=== PATIENT | female | born 1980 | race Caucasian/White ===

== ENCOUNTER 2017-03-20 17:49 | Emergency (ER) | payer OTHER ==
[2017-03-20 18:02] VITALS: BP 127/68
[2017-03-20] MEDS ORDERED: Lidocaine 2% VISCOUS* 15 ML UDC PO ONE (18:27)
--- NOTE | 2017-03-20 18:37 | UC ---
Cindy Moctezuma Emily, scribed for Ashley Champion MD on 03/20/17 at 1823 . Dental HPI - HPI Summary HPI Summary: This patient is a 37 year old F presenting to urgent care with a chief complaint of right upper tooth pain that began 1 week ago. Pain worsened today. The patient rates the pain 10/10 in severity. Symptoms aggravated by movement of her jaw, cold, eating. Symptoms alleviated by nothing. Pt has been taking Motrin with little relief. No drooling. + eating soft foods. Pt reports having previous similar tooth infections. Pt has an appt with dentist on Monday. Patient's medication reviewed this visit. - History of Current Complaint Chief Complaint: UCDentalProblem Stated Complaint: DENTAL Time Seen by Provider: 03/20/17 18:03 Hx Obtained From: Patient Hx Last Menstrual Period: now Onset/Duration: Sudden Onset Severity: Severe Pain Intensity: 10 Pain Scale Used: 0-10 Numeric Aggravating Factor(s): Chewing Alleviating Factor(s): Nothing - Allergies/Home Medications Allergies/Adverse Reactions: Allergies Allergy/AdvReac Type Severity Reaction Status Date / Time Erythromycin [From Pediazole] Allergy Intermediate Hives Verified 03/20/17 17:58 Penicillins Allergy Intermediate Nausea And Verified 03/20/17 17:58 Vomiting Sulfisoxazole Allergy Intermediate Hives Verified 03/20/17 17:58 [From Pediazole] Azithromycin Allergy Diarrhea Verified 03/20/17 17:58 Ciprofloxacin [From Cipro] Allergy See Comment Verified 03/20/17 17:58 PMH/Surg Hx/FS Hx/Imm Hx - Additional Past Medical History Additional PMH: Hx of tooth infections Previously Healthy: No Other GI/ History: Overactive bladder Other History Of: Negative For: HIV, Hepatitis B, Hepatitis C - Surgical History Surgical History: Yes Surgery Procedure, Year, and Place: TUBES IN EARS CHILD - Family History Known Family History: Positive: Hypertension Family History: Leukemia - Social History Occupation: Unemployed Lives: With Family Alcohol Use: None Substance Use Type: None Smoking Status (MU): Current Every Day Smoker Type: Cigarettes Amount Used/How Often: 1/2 ppD Length of Time of Smoking/Using Tobacco: 15+ years Have You Smoked in the Last Year: Yes Household Exposure Type: Cigarettes Review of Systems Constitutional: Fever ENT: Dental Pain, Other - Positive difficulty chewing All Other Systems Reviewed And Are Negative: Yes Physical Exam Triage Information Reviewed: Yes Appearance: Well-Appearing, No Pain Distress, Well-Nourished Vital Signs: Initial Vital Signs Temp 98.0 F 03/20/17 17:59 Pulse 83 03/20/17 17:59 Resp 18 03/20/17 17:59 BP 127/68 03/20/17 17:59 Pulse Ox 100 03/20/17 17:59 Vital Signs Reviewed: Yes Eyes: Positive: Conjunctiva Clear ENT Exam: Normal ENT: Positive: Normal ENT inspection, Hearing grossly normal, Pharynx normal, TMs normal Dental: Positive: Other: - #1 tooth - inflammed, tender, mild erythema at buccal gumline. no exudate. no fluctuance Neck exam: Normal Neck: Positive: Supple, Nontender, No Lymphadenopathy Respiratory Exam: Normal Respiratory: Positive: Chest non-tender, Lungs clear, Normal breath sounds, No respiratory distress Cardiovascular Exam: Normal Cardiovascular: Positive: RRR, No Murmur, Pulses Normal Musculoskeletal Exam: Normal Neurological Exam: Normal Neurological: Positive: Alert Psychological Exam: Normal Skin Exam: Normal Re-Evaluation - Re-Evaluation First Eval Re-Evaluation Time: 18:54 Change: Improved Comment: pt states feels better after lidocaine. will give Rx. pt also gets yeast infections with abx - will give diflucan Dental Complaint Course/Dx - Course Course Of Treatment: pt with discomfort #1 tooth. on exam appears impacted wisdom tooth with erythema and tenderness. will trial lidocaime. reviewed with analgesia. clinda. dental list given. pt with appt Monday with her dentist - Differential Dx/Diagnosis Provider Diagnoses: impacted tooth. dental pain Discharge - Discharge Plan Condition: Stable Disposition: HOME Prescriptions: Clindamycin Cap(NF) [Clindamycin Cap 300 mg Cap(NF)] 300 mg PO TID #30 cap Additional Instructions: - stay well hydrated. drink plenty of non-alcoholic, non-caffinated beverages - take antibiotics as prescirbed. they will likely cause diarrhea. okay to take immodium as needed. Eating yogurt or taking pro-biotics may help with diarrhea - keep your dental appointment as scheduled on Monday - - Alternate ibuprofen (Advil, Motrin) 600mg and Tylenol every 3 hours for pain or fever. Take with food. Do NOT take for more than 4-5 days - okay to apply lidocaine- numbing medication as instructed - call your doctor or return with questions or concerns The documentation as recorded by the Cindy blank Emily accurately reflects the service I personally performed and the decisions made by me, Ashley Champion MD.
== END 2017-03-20 19:05 | disposition home or self-care (01) ==
LOC: UCEAST 17:49
DX: K01.1 Impacted teeth (principal); F17.210 Nicotine dependence, cigarettes, uncomplicated
CPT/HCPCS: 99212; G0463

== ENCOUNTER 2017-12-23 11:56 | Emergency (ER) | payer OTHER ==
[2017-12-23 12:03] VITALS: BP 141/85
--- NOTE | 2017-12-23 12:48 | UC ---
Upper Extremity HPI - HPI Summary HPI Summary: Rosa Moctezuma, scribed for Jesusita Toledo MD. Pt is a 37 y/o F who presents to [facility] c/o L shoulder pain for about 1 month. Pain is located diffusely throughout the shoulder and she had no trauma at onset. On triage, pain is severe ranked 9/10 and aggravated by movement. She has tried many OTC medications including Ibuprofen and Motrin which have not improved symptoms, as well as stretching at home. 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 She saw her PCP and reports she saw told her pain was due to "every day wear and tear" per pt. - History of Current Complaint Chief Complaint: UCUpperExtremity Stated Complaint: SHOULDER PAIN Time Seen by Provider: 12/23/17 12:41 Hx Obtained From: Patient Hx Last Menstrual Period: 11/07/17 Onset/Duration: Lasting Weeks - 1 month, Still Present Severity Currently: Severe Pain Intensity: 9 Pain Scale Used: 0-10 Numeric Location Of Pain: Is Discrete @ - Diffusely throughout L shoulder Aggravating Factor(s): Movement Alleviating Factor(s): Nothing Associated Signs And Symptoms: Positive: Negative - Allergies/Home Medications Allergies/Adverse Reactions: Allergies Allergy/AdvReac Type Severity Reaction Status Date / Time ciprofloxacin [From Cipro] Allergy throat Verified 12/23/17 12:06 swelling erythromycin base Allergy sulfa Verified 12/23/17 12:05 Penicillins Allergy n/v Verified 12/23/17 12:05 Sulfa (Sulfonamide Allergy Hives Verified 12/23/17 12:05 Antibiotics) Home Medications: Home Medications Aspirin 81 mg CHEW TAB* 81 mg PO DAILY 12/23/17 [History Confirmed 12/23/17] PMH/Surg Hx/FS Hx/Imm Hx Endocrine History: Dyslipidemia - HLD Psychological History: Other Other Psychological History: ADD Other History Of: Negative For: HIV, Hepatitis B, Hepatitis C - Surgical History Surgical History: Yes Surgery Procedure, Year, and Place: TUBES IN EARS CHILD - Family History Known Family History: Positive: Hypertension Family History: Leukemia - Social History Alcohol Use: None Substance Use Type: None Smoking Status (MU): Current Every Day Smoker Type: Cigarettes Amount Used/How Often: 1/2 ppD Length of Time of Smoking/Using Tobacco: 15+ years Have You Smoked in the Last Year: Yes Household Exposure Type: Cigarettes Review of Systems Constitutional: Negative Skin: Negative Eyes: Negative ENT: Negative Respiratory: Negative Cardiovascular: Negative Gastrointestinal: Negative Genitourinary: Negative Motor: Negative Neurovascular: Negative Musculoskeletal: Arthralgia - L shoulder pain Neurological: Negative Psychological: Negative All Other Systems Reviewed And Are Negative: Yes Physical Exam - Summary Physical Exam Summary: Appearance: Well-appearing, Well-nourished Skin: Warm Eyes: Normal ENT: Normal Neck: Supple, nontender Respiratory: Clear to auscultation Cardiovascular: Regular rate, regular rhythm. Normal S1, S2. Musculoskeletal: Tenderness to palpation over the L trapezius, inside the L rotator cuff, inside the L AC joint, and diffusely around the rotator cuff muscles Neurological: Normal, A&Ox3 Psychiatric: Normal General: No acute distress Triage Information Reviewed: Yes Vital Signs: Initial Vital Signs Temp 98 F 12/23/17 11:59 Pulse 82 12/23/17 11:59 Resp 18 12/23/17 11:59 BP 141/85 12/23/17 11:59 Pulse Ox 100 12/23/17 11:59 Vital Signs Reviewed: Yes Diagnostics - Radiology Shoulder XR Xray Interpretation: No Acute Changes - #. Variant os acromiale. #. Negative for fracture, malalignment, or significant arthropathic change. Physician reviewed this report. Radiology Interpretation Completed By: Radiologist Upper Extremity Course/Dx - Course Course Of Treatment: XR neg for fx, it may be a rotator tendinopathy vs arthritis, advised PT and MRI - Differential Dx/Diagnosis Provider Diagnoses: Left shoulder pain Discharge - Sign-Out/Discharge Documenting (check all that apply): Patient Departure - Discharge Plan Condition: Stable Disposition: HOME Prescriptions: oxyCODONE/Acetamin 5/325 MG* [Percocet 5/325 TAB*] 1 tab PO Q8H PRN 3 Days #12 tab MDD 3 PRN Reason: Pain Patient Education Materials: Shoulder Sprain (ED), Shoulder Pain (ED) Referrals: Darien Lewis [Primary Care Provider] - Additional Instructions: please follow up with PCP for PT referral and MRI
--- NOTE | 2017-12-23 13:16 | RAD ---
Indication: 1 month LEFT shoulder pain. Progression of symptoms. No preceding injury. Comparison: February 19, 2014 Technique: Internal rotation AP, external rotation Grashey, scapular Y, axillary views LEFT shoulder Report: Variant persistent os acromiale. Negative for fracture. Normal acromioclavicular and glenohumeral joint alignment. No significant arthropathic change evident. Negative for calcific tendinopathy or abnormal soft tissue contour. IMPRESSION: #. Variant os acromiale. #. Negative for fracture, malalignment, or significant arthropathic change.
== END 2017-12-23 13:26 | disposition home or self-care (01) ==
LOC: UCEAST 11:56
DX: M25.512 Pain in left shoulder (principal); F17.210 Nicotine dependence, cigarettes, uncomplicated; Z88.1 Allergy status to other antibiotic agents; Z88.2 Allergy status to sulfonamides; Z79.82 Long term (current) use of aspirin; Z88.0 Allergy status to penicillin
CPT/HCPCS: 99212; G0463

== ENCOUNTER 2018-02-26 15:54 | Emergency (ER) | payer OTHER ==
[2018-02-26 16:14] VITALS: BP 130/88
--- NOTE | 2018-02-26 16:26 | UC ---
Dental HPI - HPI Summary HPI Summary: 37 yo female presents with tooth pain. She tells me that 3 days ago she was eating a hard candy "fireball" and bit into it - fractured her left lower tooth. Since this time has had significant pain. She made an appointment with a dentist, but cannot see them for 1 week. She is able to eat and drink, but does have pain. Denies fever or chills. - History of Current Complaint Chief Complaint: UCDentalProblem Stated Complaint: TOOTH ACHE Time Seen by Provider: 02/26/18 16:24 Hx Obtained From: Patient Hx Last Menstrual Period: [id number] Onset/Duration: Sudden Onset Severity: Severe Pain Intensity: 9 Pain Scale Used: 0-10 Numeric - Allergies/Home Medications Allergies/Adverse Reactions: Allergies Allergy/AdvReac Type Severity Reaction Status Date / Time ciprofloxacin [From Cipro] Allergy throat Verified 02/26/18 16:15 swelling erythromycin base Allergy Unknown Verified 02/26/18 16:15 Reaction Details Penicillins Allergy Nausea And Verified 02/26/18 16:15 Vomiting Sulfa (Sulfonamide Allergy Hives Verified 02/26/18 16:15 Antibiotics) PMH/Surg Hx/FS Hx/Imm Hx Endocrine History: Dyslipidemia Other History Of: Negative For: HIV, Hepatitis B, Hepatitis C - Surgical History Surgical History: Yes Surgery Procedure, Year, and Place: TUBES IN EARS CHILD - Family History Known Family History: Positive: Hypertension Family History: Leukemia - Social History Occupation: Unemployed Lives: With Family Alcohol Use: None Substance Use Type: None Smoking Status (MU): Heavy Every Day Tobacco Smoker Type: Cigarettes Amount Used/How Often: 1/2 ppD Length of Time of Smoking/Using Tobacco: 15+ years Have You Smoked in the Last Year: Yes Household Exposure Type: Cigarettes Review of Systems Constitutional: Negative Skin: Negative Eyes: Negative ENT: Dental Pain Respiratory: Negative Cardiovascular: Negative Gastrointestinal: Negative Neurovascular: Negative Neurological: Negative Psychological: Negative All Other Systems Reviewed And Are Negative: Yes Physical Exam - Summary Physical Exam Summary: GENERAL: WDWN. Holding left lower jaw in mild pain. SKIN: No erythema, edema, or abscess to left lower jawline. NECK: Supple. Nontender. No lymphadenopathy. CHEST: No accessory muscle use. Breathing comfortably and in no distress. CV: Pulses intact. Cap refill <2seconds NEURO: Alert. PSYCH: Age appropriate behavior. Triage Information Reviewed: Yes Vital Signs: Initial Vital Signs Temp 98.7 F 02/26/18 16:09 Pulse 86 02/26/18 16:09 Resp 18 02/26/18 16:09 BP 130/88 02/26/18 16:09 Pulse Ox 100 02/26/18 16:09 Vital Signs Reviewed: Yes Dental: Positive: Percussion Tenderness @ - Tooth #18, Gross Decay/Caries @ - Throughout, Dental Fracture @ - Tooth #18. Negative: Abscess @, Cellulitis @, Cervical Lymphadenopathy, Bleeding Dental Complaint Course/Dx - Course Course Of Treatment: [facility]: Reference #: [id number]. Pt is requesting pain medication at this time, however it appears through [facility] that she gets a 30 day supply monthly and should still have 6 days left of this. When asked about this, she says that she takes the pain medication for her shoulder and this hasn 't helped her tooth pain. Will rx for lidocaine mouthwash and clindamycin to prevent infection until she can see her dentist within the week. Pt agreeable to plan. - Differential Dx/Diagnosis Provider Diagnoses: Tooth fracture #18 Discharge - Sign-Out/Discharge Documenting (check all that apply): Patient Departure All imaging exams completed and their final reports reviewed: No Studies - Discharge Plan Condition: Stable Disposition: HOME Prescriptions: Clindamycin HCl 150 mg PO TID #21 capsule Ibuprofen 400 mg PO Q6H PRN #60 tablet PRN Reason: Pain Lidocaine 2% VISCOUS* [Xylocaine 2% Viscous*] 15 ml SWISH SPIT TID PRN #300 ml PRN Reason: Pain Patient Education Materials: Acute Dental Trauma (ED), Toothache (ED) Referrals: Liza SHAHID,Linda Lyn [Primary Care Provider] - Additional Instructions: If you develop a fever, shortness of breath, chest pain, new or worsening symptoms - please call your PCP or go to the ED. Your blood pressure was mildly elevated at todays visit. Please see your primary provider within 4 weeks for recheck and re-evaluation. 1) Please keep your appointment with your dentist - Billing Disposition and Condition Condition: STABLE Disposition: Home - Attestation Statements Provider Attestation: I was available for consult. This patient was seen by the [facility]. The patient was not presented to, seen by, or examined by me. -Bree
== END 2018-02-26 16:44 | disposition home or self-care (01) ==
LOC: UCEAST 15:54
DX: S02.5XXA Fracture of tooth (traumatic), initial encounter for closed fracture (principal); X58.XXXA Exposure to other specified factors, initial encounter; Y93.9 Activity, unspecified; Y92.9 Unspecified place or not applicable; K02.9 Dental caries, unspecified; Z88.1 Allergy status to other antibiotic agents; Z88.0 Allergy status to penicillin; Z88.2 Allergy status to sulfonamides; F17.210 Nicotine dependence, cigarettes, uncomplicated
CPT/HCPCS: 99212; G0463

== ENCOUNTER 2018-03-03 18:40 | Emergency (ER) | payer OTHER ==
[2018-03-03 18:56] VITALS: BP 141/98
[2018-03-03] MEDS ORDERED: Clindamycin CAP* 150 MG PO ONE (19:47)
[2018-03-03] MEDS ORDERED: Naproxen TAB* 250 MG PO ONE (19:48)
--- NOTE | 2018-03-03 19:49 | UC ---
Dental HPI - HPI Summary HPI Summary: 38-year-old female presents for left lower dental pain that started on 2017 after she bit into a fire ball candy fracturing her tooth. She was initially seen at this facility on 02/26/2018 and prescribed clindamycin 150 mg 3 times a day for 7 days. Chart reviewed. She states that she followed up with her dentist 2 days later who told her that the antibiotic dose was too low to treat her infection and that he wanted her evaluated here again to ensure that there was no ear infection as well. She states she stopped her antibiotic at that time and has had worsening pain. She reports a subjective fever. States she has been taking ibuprofen and Tylenol for her pain without relief. Denies ear drainage, trismus, dysphagia, facial swelling, difficulty breathing, chest pain, or palpitations. - History of Current Complaint Chief Complaint: UCDentalProblem Stated Complaint: EAR PAIN Time Seen by Provider: 03/03/18 19:06 Hx Obtained From: Patient Hx Last Menstrual Period: 3 wks ago Onset/Duration: Sudden Onset, Lasting Days Severity: Severe Pain Intensity: 9 Aggravating Factor(s): Chewing Alleviating Factor(s): Nothing - Allergies/Home Medications Allergies/Adverse Reactions: Allergies Allergy/AdvReac Type Severity Reaction Status Date / Time ciprofloxacin [From Cipro] Allergy throat Verified 03/03/18 18:56 swelling erythromycin base Allergy Unknown Verified 03/03/18 18:56 Reaction Details Penicillins Allergy Nausea And Verified 03/03/18 18:56 Vomiting Sulfa (Sulfonamide Allergy Hives Verified 03/03/18 18:56 Antibiotics) Home Medications: Home Medications Hydrocodone/Ibuprofen [Hydrocodone-Ibuprofen 10-200] 10 mg TID 03/03/18 [ History Confirmed 03/03/18] PMH/Surg Hx/FS Hx/Imm Hx Previously Healthy: Yes Endocrine History: Dyslipidemia Other GI/ History: Overactive bladder Other History Of: Negative For: HIV, Hepatitis B, Hepatitis C - Surgical History Surgical History: Yes Surgery Procedure, Year, and Place: TUBES IN EARS - Family History Known Family History: Positive: Hypertension Family History: Leukemia - Social History Occupation: Works From/At Home Lives: With Family Alcohol Use: None Substance Use Type: None Smoking Status (MU): Heavy Every Day Tobacco Smoker Type: Cigarettes Amount Used/How Often: 1/2 ppD Length of Time of Smoking/Using Tobacco: 15+ years Have You Smoked in the Last Year: Yes Household Exposure Type: Cigarettes Review of Systems Constitutional: Negative Skin: Negative Eyes: Negative ENT: Dental Pain, Ear Ache Respiratory: Negative Cardiovascular: Negative Gastrointestinal: Negative Is Patient Immunocompromised?: No All Other Systems Reviewed And Are Negative: Yes Physical Exam Triage Information Reviewed: Yes Appearance: Well-Nourished, Pain Distress - Mild-moderate discomfort. Tearful, holding her lower left jaw. Vital Signs: Initial Vital Signs Temp 98.2 F 03/03/18 18:51 Pulse 105 03/03/18 18:51 Resp 18 03/03/18 18:51 BP 141/98 03/03/18 18:51 Pulse Ox 100 03/03/18 18:51 Vital Signs Reviewed: Yes Eyes: Positive: Conjunctiva Clear. Negative: Discharge ENT: Positive: Hearing grossly normal, TMs normal, Uvula midline. Negative: Pharyngeal erythema, Nasal congestion, Nasal drainage, Tonsillar swelling, Tonsillar exudate, Sinus tenderness Dental: Positive: Gross Decay/Caries @ - throughout dentition, Dental Fracture @ - Left 2nd lower molar. See diagram., Other: - No trismus. Neck: Positive: Supple, Nontender, No Lymphadenopathy Respiratory: Positive: Lungs clear, Normal breath sounds, No respiratory distress Cardiovascular: Positive: RRR, No Murmur Neurological: Positive: Alert Skin Exam: Normal Dental Complaint Course/Dx - Course Course Of Treatment: 38-year-old female presents for left lower dental pain that started on 02/23/2018 after she bit into a fire ball candy fracturing her tooth. She was initially seen at this facility on 02/26/2018 and prescribed clindamycin 150 mg 3 times a day for 7 days. She states that she followed up with her dentist 2 days later who told her that the antibiotic dose was too low to treat her infection and that he wanted her evaluated here again to ensure that there was no ear infection as well. She states she stopped her antibiotic at that time and has had worsening pain. She reports a subjective fever. States she has been taking ibuprofen and Tylenol for her pain without relief. It was noted on her previous visit that she receives a monthly supply of hydrocodone-acetaminophen 10 mg 3 times a day and that she should've had 6 days remaining at that time. I stop was consulted again and she was prescribed another 30 day supply on 02/27/2018 which was then filled on 03/02/2018. Her exam was unremarkable except for the previous dental tenderness and fracture of her second left lower molar and multiple caries throughout. I have increased her dose to clindamycin 300 mg 3 times a day for 10 days and provided her first dose tonight. I have also recommended that she take naproxen 500 mg every 12 hours with food to help with the pain and inflammation. She was instructed that she may continue to use her hydrocodone-acetaminophen as it is prescribed. She is to call first thing on Monday morning to reschedule appointment with her dentist. Patient verbalizes understanding and agrees with plan of care. - Differential Dx/Diagnosis Differential Diagnosis/Dx: Dental Abscess, Dental Caries, Fractured Tooth, Odontogenic Pain, Peridontic Disease Provider Diagnoses: Dental fracture Discharge - Sign-Out/Discharge Documenting (check all that apply): Patient Departure All imaging exams completed and their final reports reviewed: No Studies - Discharge Plan Condition: Stable Disposition: HOME Prescriptions: Clindamycin HCl 300 mg PO Q8HR #30 capsule Naproxen [Naproxen 500 mg tab] 500 mg PO BID #30 tablet Patient Education Materials: Toothache (ED) Referrals: Liza SHAHID,Linda Lyn [Primary Care Provider] - 2 Weeks (For recheck of blood pressure.) Additional Instructions: There is no evidence of an ear infection on your exam this evening. I have increased the dose of your antibiotics for your dental infection. We have given you first dose here in the clinic. Starting tomorrow take clindamycin one capsule every 8 hours for 10 days to treat the infection. Take naproxen 500 mg 1 tablet every 12 hours with food to help manage the pain. Continue taking hydrocodone-acetaminophen as prescribed to you by your primary care provider as needed for severe pain. Use salt water rinses to help encourage any drainage and removal of debris. He should do this after every meal and at bedtime. Call your dentist first thing on Monday to schedule a follow-up appointment for your tooth. Your blood pressure was elevated in the clinic today. Follow up with your primary care provider within 2 weeks to have this rechecked. Seek immediate medical attention in the emergency room if you develop persistent fever, you are unable to open your mouth, you are unable to swallow, have difficulty breathing, or any worsening of symptoms. - Billing Disposition and Condition Condition: STABLE Disposition: Home Images Dental: 1 - Dental tenderness with sigificant decay and fracture. Mild gingival erythema without induration or fluctuance.
== END 2018-03-03 20:07 | disposition home or self-care (01) ==
LOC: UCEAST 18:40
DX: K03.81 Cracked tooth (principal); K02.9 Dental caries, unspecified; Z88.1 Allergy status to other antibiotic agents; Z88.0 Allergy status to penicillin; Z88.2 Allergy status to sulfonamides; F17.210 Nicotine dependence, cigarettes, uncomplicated
CPT/HCPCS: 99212; A9270-GY; G0463

== ENCOUNTER 2018-09-29 17:38 | Emergency (ER) | payer OTHER ==
[2018-09-29 17:59] VITALS: BP 155/77
--- NOTE | 2018-09-29 18:11 | UC ---
Dental HPI - HPI Summary HPI Summary: 38 y/o female presents to the urgent care c/o painful lump in her left lower jaw for the past 2 days. Pt reports she has a fracture molar w/ cavities for the past year. However it hasn't bother her before. Pt states pain is now 9/10 w / chewing. Swelling started last night, but denies fever or trismus. Pt doesn' t have a Dentist. Pt denies HOUSE, dizziness, SOB, chest pain, abdominal pain, N/V/ D. Last does of ibuprofen 800mg PO was taken around 1500pm. - History of Current Complaint Chief Complaint: UCGeneralIllness Stated Complaint: LEFT SIDE JAW SWELLING/PAIN Time Seen by Provider: 09/29/18 18:10 Hx Obtained From: Patient Hx Last Menstrual Period: "beggining of the month" ?: No Onset/Duration: Gradual Onset, Lasting Days - 2 days, Still Present, Worse Since - today Severity: Severe Pain Intensity: 9 Pain Scale Used: 0-10 Numeric Aggravating Factor(s): Chewing Alleviating Factor(s): OTC Meds Related History: Swelling - mild left lower jaw - Allergies/Home Medications Allergies/Adverse Reactions: Allergies Allergy/AdvReac Type Severity Reaction Status Date / Time ciprofloxacin [From Cipro] Allergy throat Verified 09/29/18 17:51 swelling erythromycin base Allergy Unknown Verified 09/29/18 17:51 Reaction Details Penicillins Allergy Nausea And Verified 09/29/18 17:51 Vomiting Sulfa (Sulfonamide Allergy Hives Verified 09/29/18 17:51 Antibiotics) Home Medications: Home Medications Aspirin EC TAB* [Ecotrin EC Low Dose 81 MG*] 1 tab DAILY 09/29/18 [History Confirmed 09/29/18] Atorvastatin* [Lipitor 10 MG*] 1 tab DAILY 09/29/18 [History Confirmed 09/29/18] Bcp 1 tab DAILY 09/29/18 [History Confirmed 09/29/18] Restless Leg Med 1 tab DAILY 09/29/18 [History Confirmed 09/29/18] PMH/Surg Hx/FS Hx/Imm Hx Previously Healthy: Yes Endocrine History: Dyslipidemia Other Psychological History: ADHD Other History Of: Negative For: HIV, Hepatitis B, Hepatitis C - Surgical History Surgical History: Yes Surgery Procedure, Year, and Place: TUBES IN EARS - Family History Known Family History: Positive: Hypertension Family History: Leukemia, dyslipidemia - Social History Occupation: Employed Full-time Lives: With Family Alcohol Use: None Substance Use Type: None Smoking Status (MU): Heavy Every Day Tobacco Smoker Type: Cigarettes Amount Used/How Often: 1/2 ppD Length of Time of Smoking/Using Tobacco: 15+ years Have You Smoked in the Last Year: Yes Household Exposure Type: Cigarettes Review of Systems All Other Systems Reviewed And Are Negative: Yes Constitutional: Positive: Negative Skin: Positive: Negative Eyes: Positive: Negative ENT: Positive: Dental Pain - left lwoe jaw pain and swelling w/ a fracture molar Respiratory: Positive: Negative Cardiovascular: Positive: Negative Gastrointestinal: Positive: Negative Genitourinary: Positive: Negative Motor: Positive: Negative Neurovascular: Positive: Negative Musculoskeletal: Positive: Negative Neurological: Positive: Negative Psychological: Positive: Negative Is Patient Immunocompromised?: No Physical Exam - Summary Physical Exam Summary: Vital Signs Reviewed: Yes General: Well-Appearing, Well-Nourished female sitting in the examining table w/ o any respiratory or pain distress Eyes: Positive: Conjunctiva Clear - PERRLA, EOMI, ENT: Positive: Normal ENT inspection, Hearing grossly normal, Pharynx normal, TMs normal - B/L external ear canals clear,. Negative: Tonsillar swelling, Tonsillar exudate, Trismus Dental: Positive: Gross Decay/Caries and fracture molar #19 w/ gingival swelling and erythema, tender to percussion. w/ positive anterior Cervical Lymphadenopathy. Mild soft tissue swelling around this molar Neck: Positive: Supple Respiratory: Positive: Chest non-tender, Lungs clear, Normal breath sounds, No respiratory distress Cardiovascular: Positive: RRR, No Murmur, Pulses Normal, Brisk Capillary Refill Abdomen Description: Positive: Nontender, No Organomegaly, Soft. Negative: CVA Tenderness (R), CVA Tenderness (L) Bowel Sounds: Positive: Present Musculoskeletal: Positive: Strength Intact, ROM Intact, No Edema Neurological Exam: Normal Psychological Exam: Normal Skin Exam: Normal Triage Information Reviewed: Yes Vital Signs: Initial Vital Signs Temp 98.9 F 09/29/18 17:55 Pulse 96 09/29/18 17:55 Resp 16 09/29/18 17:55 BP 155/77 09/29/18 17:55 Pulse Ox 100 09/29/18 17:55 Dental Complaint Course/Dx - Course Course Of Treatment: 38 y/o female presents to the urgent care c/o painful lump in her left lower jaw for the past 2 days. Pt reports she has a fracture molar w/ cavities for the past year. However it hasn't bother her before. Pt states pain is now 9/10 w / chewing. Swelling started last night, but denies fever or trismus. Pt doesn' t have a Dentist. Pt denies HOUSE, dizziness, SOB, chest pain, abdominal pain, N/V/ D. Last does of ibuprofen 800mg PO was taken around 1500pm. Hx obtained. Pt with dental abscess around molar #19 w/ cross decay on examination. I-stop # [id number] which show Pt was recently Rx Hammon 10-325mg , 120 tabs dispense om 05/2019. Pt given viscous Lidocaine at the clinic to alleviate symptoms by the nurse. Pt Rx Clindamycin PO and Ibuprofen PO fas directed below. Pt strongly advised to f/u with Dentist as soon as possible further evaluation and treatment. Pt's BP is elevated today advised to decrease salt in diet, monitor BP and f/u with PCP for further management. D/C instructions explained. Mother and Pt understood and agreed with plan of care. Hx obtained. - Differential Dx/Diagnosis Differential Diagnosis/Dx: Dental Abscess, Dental Caries, Fractured Tooth, Gingivitis, Odontogenic Pain Provider Diagnosis: Dental abscess, Fracture, tooth, Elevated BP without diagnosis of hypertension Discharge - Sign-Out/Discharge Documenting (check all that apply): Patient Departure - d/c home All imaging exams completed and their final reports reviewed: No Studies - Discharge Plan Condition: Stable Disposition: HOME Prescriptions: Clindamycin Cap(NF) [Clindamycin Cap 300 mg Cap(NF)] 300 mg PO TID #30 cap Ibuprofen TAB* [Motrin TAB* 800 MG] 800 mg PO Q6H PRN #30 tab PRN Reason: dental pain Lidocaine 2% VISCOUS* [Xylocaine 2% Viscous*] 15 ml SWISH SPIT Q6H PRN #1 btl PRN Reason: dental pain Patient Education Materials: Dental Abscess (ED), Low-Sodium Diet (ED) Referrals: Liza SHAHID,Linda Lyn [Primary Care Provider] - 3 Days Additional Instructions: 1-Please take full course of antibiotic to avoid resistance. 2- Take Ibuprofen PO q6-8hrs prn afte meals to alleviate pain and swelling. 3- You can also take Hammon PO you have at home to alleviate pain 4- F/u with your Dentist or a dentist from [facility] provided as soon as possible for further treatment. 5- Your BP is elevated today. please decrease salt in your diet, monitor BP and if it continues to be elevated please f/u with your PCP for further management. - Billing Disposition and Condition Condition: STABLE Disposition: Home
[2018-09-29] MEDS ORDERED: Lidocaine 2% VISCOUS* 15 ML UDC SWISH SPIT ONE (18:39)
[2018-09-29] MEDS ORDERED: Clindamycin CAP* 150 MG PO ONE (19:00)
== END 2018-09-29 19:07 | disposition home or self-care (01) ==
LOC: UCCORT 17:38
DX: K04.7 Periapical abscess without sinus (principal); S02.5XXA Fracture of tooth (traumatic), initial encounter for closed fracture; R03.0 Elevated blood-pressure reading, without diagnosis of hypertension; E78.5 Hyperlipidemia, unspecified; F17.210 Nicotine dependence, cigarettes, uncomplicated; X58.XXXA Exposure to other specified factors, initial encounter; Y92.9 Unspecified place or not applicable; Z79.82 Long term (current) use of aspirin; Z88.1 Allergy status to other antibiotic agents; Z88.2 Allergy status to sulfonamides
CPT/HCPCS: 99212; A9270-GY; G0463

== ENCOUNTER 2019-03-26 18:30 | Emergency (ER) | payer OTHER ==
[2019-03-26 18:44] VITALS: BP 147/87
--- NOTE | 2019-03-26 19:20 | UC ---
Ear Complaint HPI - HPI Summary HPI Summary: Per steel inspector: "Left ear pain started a couple of days ago and continued to worsen. Pain spreading down side of neck to throat. Temp 99.9. " -has had many ear infections and tubes. pain is severe. she takes hydrcodone for other reason. no fevers/chills. -pain is mostly over her left cheek/mandible. no rash. -hasnt eaten anything sour as she doesnt liek sour foods. - History of Current Complaint Chief Complaint: UCEar Stated Complaint: LEFT EAR PAIN Time Seen by Provider: 03/26/19 18:55 Hx Last Menstrual Period: "beggining of the month" Pain Intensity: 9 - Allergies/Home Medications Allergies/Adverse Reactions: Allergies Allergy/AdvReac Type Severity Reaction Status Date / Time ciprofloxacin [From Cipro] Allergy throat Verified 09/29/18 17:51 swelling erythromycin base Allergy Unknown Verified 09/29/18 17:51 Reaction Details Penicillins Allergy Nausea And Verified 09/29/18 17:51 Vomiting Sulfa (Sulfonamide Allergy Hives Verified 09/29/18 17:51 Antibiotics) Home Medications: Home Medications Butalbital/Aspirin/Caffeine [Fiorinal 50-325-40 mg-] 1 cap PO Q6H PRN 03/26/19 [ History Confirmed 03/26/19] Cyclobenzaprine TAB* [Flexeril 10 MG TAB*] 10 mg PO DAILY PRN 03/26/19 [History Confirmed 03/26/19] Hydrocodone/Acetaminophen [Hydrocodone-Acetamin 10-325 mg] 1 tab PO DAILY [History Confirmed 03/26/19] PMH/Surg Hx/FS Hx/Imm Hx Endocrine History: Dyslipidemia Other History Of: Negative For: HIV, Hepatitis B, Hepatitis C - Surgical History Surgical History: Yes Surgery Procedure, Year, and Place: TUBES IN EARS - Family History Known Family History: Positive: Hypertension Family History: Leukemia, dyslipidemia - Social History Alcohol Use: None Substance Use Type: None Smoking Status (MU): Heavy Every Day Tobacco Smoker Type: Cigarettes Amount Used/How Often: 1/2 ppD Length of Time of Smoking/Using Tobacco: 15+ years Have You Smoked in the Last Year: Yes Household Exposure Type: Cigarettes Review of Systems All Other Systems Reviewed And Are Negative: Yes Constitutional: Positive: Negative, Fatigue. Negative: Fever, Chills Skin: Positive: Negative Eyes: Positive: Negative ENT: Positive: Ear Ache. Negative: Epistaxis, Dental Pain, Sore Throat, Nasal Discharge, Sinus Pain/Tenderness Respiratory: Positive: Negative. Negative: Shortness Of Breath, Cough Cardiovascular: Positive: Negative. Negative: Palpitations, Chest Pain Gastrointestinal: Positive: Negative. Negative: Abdominal Pain, Vomiting, Diarrhea, Nausea Genitourinary: Positive: Negative Motor: Positive: Negative Neurovascular: Positive: Negative Musculoskeletal: Positive: Negative Neurological: Positive: Negative Psychological: Positive: Negative Is Patient Immunocompromised?: No Physical Exam Triage Information Reviewed: Yes Appearance: Pain Distress - moderate discomfort. holding left face/cheek. Vital Signs: Initial Vital Signs Temp 99.1 F 03/26/19 18:39 Pulse 94 03/26/19 18:39 Resp 18 03/26/19 18:39 BP 147/87 03/26/19 18:39 Pulse Ox 100 03/26/19 18:39 Vital Signs Reviewed: Yes Eye Exam: Normal ENT: Positive: Pharynx normal, TMs normal - w/ b/l PE tube scars., Uvula midline , Other - left ear displaced more superiorly than right. Mild swelling. no exudate from leah, haim's or parotid ducts. significant tenderness over left mandible in area of parotid gland.. Negative: TM bulging, TM dull, TM red , Tonsillar swelling, Tonsillar exudate, Dental tenderness, Sinus tenderness Dental Exam: Normal Neck: Positive: Supple, Other: - left anterior cx LAD, + tender. FROM. Respiratory Exam: Normal Respiratory: Positive: Lungs clear, Normal breath sounds, No respiratory distress, No accessory muscle use. Negative: Crackles, Rhonchi, Stridor, Wheezing Abdominal Exam: Normal Abdomen Description: Positive: Nontender, Soft Musculoskeletal Exam: Normal Neurological Exam: Normal Psychological Exam: Normal Skin Exam: Normal Skin: Negative: Rashes Ear Complaint Course/Dx - Course Course Of Treatment: signfiicant swelling and pain at left jaw/ear and swelling c/w parotid gland swelling. no fevers/chills or exudate. she has allergy to PCN (reports hives as child although n/v is listed in chart), erythromycin and sulfa. augmentin is 1st line followed by clinda. 3rd line is keflx 500mgs TID and flagyl 500mgs TID x 10-14d. disc low risk of allergic reaction. no ETOH w/ flagyl -recommend CT of parotid to rule out other pathology. should go to ER with worsening pain, f/c. she understood me well adn is very agreeable. refuses to eat anything sour. probiotic. - Differential Dx/Diagnosis Differential Diagnosis/HQI/PQRI: Mastoiditis, Otitis Externa, Otitis Media, Trigeminal Nueralgia, Other - left parotiditis Provider Diagnosis: Parotiditis Discharge ED - Sign-Out/Discharge Documenting (check all that apply): Patient Departure All imaging exams completed and their final reports reviewed: No Studies - Discharge Plan Condition: Stable Disposition: HOME Prescriptions: cephALEXin [Keflex] 500 mg PO QID #40 capsule metroNIDAZOLE [Flagyl 500 MG TAB] 500 mg PO TID #30 tab Patient Education Materials: Sialoadenitis (ED) Referrals: Linda De Jesus PA [Primary Care Provider] - 1 Day Additional Instructions: -It is recommended that you take a probiotic daily while you are on antibiotics. A few common brands that you can buy over the counter are colon health, align and florastor. These can help prevent a colon infection called c diff that can be associated with antibiotic use.- -There is a very low chance of having an allergic reaction to the keflex based on a penicillin allergy. You should go to the ER immediately with rash, swelling in your lips, tongue or throat. -You should follow up with your PCP tomorrow. CTscan is recommended. -Please go to the ER with worsening pain, fevers, chills, body aches. - Billing Disposition and Condition Condition: STABLE Disposition: Home
== END 2019-03-26 19:37 | disposition home or self-care (01) ==
LOC: UCCORT 18:30
DX: K11.20 Sialoadenitis, unspecified (principal); F17.210 Nicotine dependence, cigarettes, uncomplicated; Z88.1 Allergy status to other antibiotic agents; Z88.0 Allergy status to penicillin; Z88.2 Allergy status to sulfonamides; Z79.82 Long term (current) use of aspirin
CPT/HCPCS: 99212; G0463